=== PATIENT | female | born 1990 | race African-American/Black ===

== ENCOUNTER 2018-08-18 00:06 | Emergency (ER) | payer OTHER ==
[~2018-08-18] VITALS: Ht 167.6 cm; Wt 72.6 kg
[2018-08-18 00:22] VITALS: Ht 167.6 cm; Wt 72.6 kg
[2018-08-18 02:18] VITALS: BP 106/67
== END 2018-08-18 02:20 | disposition short-term general hospital (02) ==
LOC: ED 00:06
DX: O42.92 Full-term premature rupture of membranes, unspecified as to length of time between rupture and onset of labor (principal)